=== PATIENT | female | born 1985 | race Two or more races ===

== ENCOUNTER 2020-07-01 16:39 | Emergency (ER) | payer MEDICAID ==
[~2020-07-01] VITALS: Ht 152.4 cm; Wt 59.0 kg
--- NOTE | 2020-07-01 17:06 | NUR ---
ALICIA FROM STREET TO ER BED 12. AAOX4. NOT IN RESP DISTRESS. AMBULATORY. CAME IN FOR SUICIDAL IDEATION W/ PLAN TO CUT HER WRIST. PT DENIED HI. DENIES AUDITORY AND VISUAL HALLUCINATIONS. PT STATES THE SHE FEELS LIKE THIS BECAUSE SHE IS SAD. PT REPORTED USING CRYSTAL METH LAST NIGHT. PT IS STRIPPED OF CLOTHING WITH ALL BELONGINGS PLACED IN LOCKER LOCATED IN UTILITY ROOM. SHE WAY VISUALLY INSPECTED FOR CONTRABAND AND WANDED BY THE SECURITY. 1:1 SITTER AT BEDSIDE. PT IS NOTED WITH SUPERFICIAL CUTS ON HER R CHEEK. WAS AT THE BEDSIDE FOR EVAL. ORDERS RECEIVED NOTED AND CARRIED OUT.
[2020-07-01 17:19] LABS: BASOPHILS # (AUTO) 0.1 /CMM (0.0-0.2); BASOPHILS % (AUTO) 1.5 % (0.0-2.0); EOSINOPHILS % (AUTO) 3.2 % (0.0-6.0); HEMATOCRIT 40 % (33-45); HEMOGLOBIN 13.1 g/dL (11.5-14.8); LYMPHOCYTES % (AUTO) 26.2 % (20.0-44.0); MEAN CORPUSCULAR HGB CONC 33 g/dl (31.0-36.0); MEAN CORPUSCULAR VOLUME 94 fL (82-100); MONOCYTES # (AUTO) 0.6 /CMM (0.1-1.30); MONOCYTES % (AUTO) 8.2 % (2.0-12.0); NEUTROPHILS # (AUTO) 4.6 /CMM (1.8-8.9); NEUTROPHILS % (AUTO) 60.9 % (43.0-81.0); PLATELET COUNT (AUTO) 388 /CMM (150-450); RED BLOOD CELL COUNT(AUTO) 4.27 MIL/uL (4.0-5.2); WHITE BLOOD COUNT (AUTO) 7.5 K/uL (4.3-11.0)
[2020-07-01 17:20] LABS: BILIRUBIN,URINE Negative (NEGATIVE); BLOOD, URINE Moderate Ery/uL (NEGATIVE); COLOR,URINE Yellow (YELLOW); LEUKOCYTE ESTERASE ,URINE Trace (NEGATIVE); NITRITE, URINE Positive (NEGATIVE); PROTEIN,URINE 100 mg/dl (NEGATIVE); UGLUCOSE Negative (NEGATIVE); UROBILINOGEN,URINE 0.2 EU/dL (0.2)
[2020-07-01 17:26] LABS: CALCIUM, SERUM 8.8 mg/dL (8.5-10.1); CARBON DIOXIDE 28 mmol/L (21-32); CHLORIDE 101 mmol/L (98-107); CREATININE 0.7 mg/dL (0.6-1.3); GLUCOSE 85 mg/dL (74-106); SODIUM SERUM 138 mmol/L (136-145); UREA NITROGEN, BLOOD 9 mg/dL (7-18)
[2020-07-01 17:31] LABS: ACETAMINOPHEN 0 ug/ml (10-30); ALANINE AMINOTRANSFERASE 20 U/L (12-78); ALBUMIN 3.7 g/dL (3.4-5.0); ALCOHOL, BLOOD < 3 mg/dL (0-0); ALKALINE PHOSPHATASE 79 U/L (46-116); ASPARTATE AMINOTRANSFERASE 15 U/L (15-37); BILIRUBIN,DIRECT 0.1 mg/dL (0.0-0.2); BILIRUBIN,TOTAL 0.4 mg/dL (0.2-1.0); TOTAL PROTEIN, SERUM 8.6 g/dL (6.4-8.2)
[2020-07-01 17:33] LABS: BACTERIA,URINE 3+ /HPF (None Seen); WBC,URINE 81-100 /HPF (0-3)
[2020-07-01 17:34] LABS: SQUAMOUS EPITHELIAL CELL,UR Few /HPF (None Seen)
[2020-07-01] MEDS ORDERED: CEPHALEXIN MONOHYDRATE 500 MG CAPSULE PO ONE (18:11)
[2020-07-01] MEDS ORDERED: POTASSIUM CHLORIDE 20 MEQ TAB.PRT.SR PO ONE (18:12)
[2020-07-01] MEDS: POTASSIUM CHLORIDE 20 MEQ TAB.PRT.SR PO ONE (18:17)
[2020-07-01] MEDS: CEPHALEXIN MONOHYDRATE 500 MG CAPSULE PO ONE (18:17)
--- NOTE | 2020-07-01 19:31 | NUR ---
CLINICAL INFORMATION FAXED TO [facility]
[2020-07-01] MEDS ORDERED: OLANZAPINE 10 MG VIAL IM ONE (19:47)
[2020-07-01] MEDS: OLANZAPINE 10 MG VIAL IM ONE (19:50)
--- NOTE | 2020-07-01 20:20 | NUR ---
pt started to cry and yell for no apparent reason. arnold mancera made aware. received orders to give ativan 2mg im x 1. noted and will carry out.
[2020-07-01] MEDS ORDERED: LORAZEPAM INJ 2 MG/ML VIAL ONE ×2 (20:21→22:49)
[2020-07-01] MEDS: LORAZEPAM INJ 2 MG/ML VIAL IM ONE ×2 (20:24→22:55)
--- NOTE | 2020-07-01 22:08 | NUR ---
PER CJ FROM [facility], NO BEDS AVAILABLE AT THIS TIME
--- NOTE | 2020-07-01 22:45 | NUR ---
PT REMAINS AGITATED AND TACHYCARDIC. AMY KIM MADE AWARE
[2020-07-01] MEDS ORDERED: HALOPERIDOL LACTATE INJ 5 MG/ML VIAL ONE (22:49)
[2020-07-01] MEDS ORDERED: diphenhydrAMINE HCL 50 MG/ML VIAL ONE (22:49)
[2020-07-01] MEDS: HALOPERIDOL LACTATE INJ 5 MG/ML VIAL IM ONE (22:55)
[2020-07-01] MEDS: diphenhydrAMINE HCL 50 MG/ML VIAL IM ONE (22:55)
[2020-07-01] MEDS: IV NS 0.9% 1,000 ML BAG IV ONE (23:01)
--- NOTE | 2020-07-02 00:43 | NUR ---
PT RESTING COMFORTABLY IN BED. VITAL SIGNS STABLE. SITTER STILL AT BEDSIDE, WILL CONTINUE TO MONITOR
--- NOTE | 2020-07-02 03:34 | NUR ---
PT PULLED OUT IV. Catheter intact and site benign. Pressure and 4x4 applied to site. No bleeding noted.
--- NOTE | 2020-07-02 05:54 | NUR ---
PT RESTING COMFORTABLY IN BED. VITAL SIGNS STABLE. NO ACUTE DISTRESS NOTED AT THIS TIME. SITTER STILL AT BEDSIDE, WILL CONTINUE TO MONITOR
--- NOTE | 2020-07-02 09:06 | NUR ---
ASSESSED PT ON BED ASLEEP BUT EASILY AROUSABLE. V/S STABLE, KEPT RESTED AND COMFORTABLE. WILL CONTINUE TO MONITOR.
--- NOTE | 2020-07-02 11:47 | NUR ---
colin called from [facility] pt is accepted in [facility] 2 accepting md is shahriar and call [phone] for report
--- NOTE | 2020-07-02 12:16 | NUR ---
[id number]
--- NOTE | 2020-07-02 12:20 | NUR ---
9:40am Patient presented to [facility] ED by rescue ambulance. Per MD note, patent had increasing thoughts of suicide to cut herself and has been hearing voices to kill herself. Per MD, patient had been taking Trazodone and Seroquel but has been non-compliant. This SW met with the patient at bedside. Patient is a 35-year-old female. Patient is homeless. Patient was asleep, lying in position, and was easily arousable by verbal cues. Patient was receptive to speaking with this SW. Patient opened eyes and made some eye contact with this SW. Patient was able to verbalize that she presented to [facility] ED with thoughts of suicide and then closed her eyes again. SW was able to wake patient again by verbal cues. Patient stated that she was going to cut herself. SW discussed voluntary psychiatric hospitalization with this patient and patient stated wanting treatment at [facility] only and closed her eyes again. SW unable to complete full assessment with this patient. SW will attempt again at a later time. Plan: SW will refer patient to [facility] intake (fax) and MALIK will notify Jomar (cell) regarding patients voluntary psychiatric referral. This director social welfare will wait to hear back from [facility] intake regarding status of referral. This director social welfare will follow-up with [facility] if status update is not provided.
--- NOTE | 2020-07-02 12:39 | NUR ---
[facility] CALLED WITH ETA 1400 BY ALEX
[2020-07-02] MEDS ORDERED: CEPHALEXIN MONOHYDRATE 500 MG CAPSULE PO ONE (12:58)
[2020-07-02] MEDS: CEPHALEXIN MONOHYDRATE 500 MG CAPSULE PO ONE (13:01)
--- NOTE | 2020-07-02 13:34 | NUR ---
REPORT GIVEN TO JERI BARDALES FOR VALERIA.
[2020-07-02 14:23] VITALS: BP 104/75
== END 2020-07-02 14:24 ==
LOC: ER 16:46
DX: R45.851 Suicidal ideations (principal); Z59.0 Homelessness; F32.9 Major depressive disorder, single episode, unspecified; Z91.14 Patient's other noncompliance with medication regimen; Z20.828 Contact with and (suspected) exposure to other viral communicable diseases; N39.0 Urinary tract infection, site not specified; B96.20 Unspecified Escherichia coli [E. coli] as the cause of diseases classified elsewhere; E87.6 Hypokalemia; S01.81XA Laceration without foreign body of other part of head, initial encounter; X78.9XXA Intentional self-harm by unspecified sharp object, initial encounter; Y92.89 Other specified places as the place of occurrence of the external cause; Y99.8 Other external cause status; R78.4 Finding of other drugs of addictive potential in blood
CPT/HCPCS: 36415; 80048; 80076; 80299; 80307; 80320; 81001; 83735; 84703; 85025; 87077; 87086; 87186; 87426; 96360; 96372 ×2; 99285; C9803; J1200; J1630; J2060 ×2; J3490; J7030; 81000-TC; G0480